=== PATIENT | female | born 1980 | race Hispanic/Latino ===

== ENCOUNTER 2024-02-05 15:53 | Emergency (ER) | payer SELFPAY ==
[~2024-02-05] VITALS: Ht 157.5 cm; Wt 76.2 kg
[2024-02-05 16:10] VITALS: O2SAT 100
[2024-02-05 16:47] LABS: CLARITY,URINE CLOUDY (CLEAR); COLOR,URINE STRAW (YELLOW)
[2024-02-05 16:48] LABS: BILIRUBIN,URINE NEGATIVE (NEGATIVE); GLUCOSE, URINE NEGATIVE (NEGATIVE); KETONES,URINE NEGATIVE (NEGATIVE); LEUKOCYTE ESTERASE ,URINE SMALL (NEGATIVE); NITRITE,URINE NEGATIVE (NEGATIVE); PH,URINE 5.5 (5 - 7); PROTEIN,URINE DIPSTICK NEGATIVE (NEGATIVE); URINE UROBILINOGEN 0.2 mg/dL (0.2 - 1)
[2024-02-05 16:49] LABS: EPITHELIAL CELLS,URINE MODERATE /LPF
[2024-02-05 16:50] LABS: BACTERIA,URINE MANY /HPF; WBC,URINE (MAN) >50 /HPF (0-5)
[2024-02-05] MEDS ORDERED: CEFDINIR300 MG PO (17:06)
[2024-02-05] MEDS ORDERED: PYRIDIUM100 MG PO (17:07)
== END 2024-02-05 17:14 | disposition home or self-care (01) ==
LOC: ER 16:18
DX: R30.0 Dysuria (principal); N39.0 Urinary tract infection, site not specified; R31.9 Hematuria, unspecified; I50.9 Heart failure, unspecified
CPT/HCPCS: 81001; 87086; 87186; 99283

== ENCOUNTER 2025-01-02 12:14 | Emergency (ER) | payer OTHER ==
[~2025-01-02] VITALS: Ht 157.5 cm; Wt 76.2 kg
[~2025-01-02 12:14] MED LIST: CEFDINIR300 MG PO; ONDANSETRON ODT4 MG SL; PYRIDIUM100 MG PO; XOFLUZA80 MG PO
[2025-01-02 12:34] VITALS: TEMP 97.8
[2025-01-02] MEDS: SODIUM CHLORIDE 0.9% 1000ML 1,000 ML IV ONE (13:01)
[2025-01-02] MEDS: DIPHENHYDRAMINE HCL INJ 50 MG/ML VIAL IV ONE (13:02)
[2025-01-02] MEDS: METOCLOPRAMIDE HCL 10 MG/2ML VIAL IV ONE (13:04)
[2025-01-02] MEDS: KETOROLAC TROMETHAMINE 30 MG/ML VIAL IV STA (13:08)
[2025-01-02] MEDS: CYCLOBENZAPRINE HCL 10 MG TAB PO ONE (13:57)
[2025-01-02 14:02] VITALS: PULSE 56; RESP 16
[2025-01-02] MEDS ORDERED: CYCLOBENZAPRINE10 MG PO (14:16)
[2025-01-02 14:35] VITALS: BP 103/72; PULSE 63; RESP 16; TEMP 97.3; O2SAT 97
== END 2025-01-02 14:15 | disposition home or self-care (01) ==
LOC: ER 12:38
DX: R51.9 Headache, unspecified (principal); M54.6 Pain in thoracic spine; R11.2 Nausea with vomiting, unspecified; V43.52XA Car driver injured in collision with other type car in traffic accident, initial encounter; Y92.488 Other paved roadways as the place of occurrence of the external cause; I50.9 Heart failure, unspecified; I48.91 Unspecified atrial fibrillation; F41.9 Anxiety disorder, unspecified; F32.A Depression, unspecified
CPT/HCPCS: 99284; J1200; J1885; J2765; J7030